=== PATIENT | female | born 1995 | race Caucasian/White ===

== ENCOUNTER 2024-11-04 15:58 | Emergency (ER) | payer MEDICAID ==
[~2024-11-04] VITALS: Ht 157.5 cm; Wt 67.1 kg
[2024-11-04 16:02] VITALS: BP 146/61; PULSE 102; RESP 18; TEMP 97.8; O2SAT 100
[2024-11-04] MEDS ORDERED: ACET325T64 PO (16:33)
[2024-11-04] MEDS ORDERED: IBUP-1984 PO (16:33)
[2024-11-04] MEDS ORDERED: TRAZ-251 PO (16:33)
== END 2024-11-04 17:22 | disposition home or self-care (01) ==
LOC: ER 15:58
DX: G89.29 Other chronic pain (principal); K08.89 Other specified disorders of teeth and supporting structures; G47.00 Insomnia, unspecified; Z88.0 Allergy status to penicillin; Z79.899 Other long term (current) drug therapy
CPT/HCPCS: 99281

== ENCOUNTER 2024-11-06 13:38 | Emergency (ER) | payer MEDICAID ==
[~2024-11-06] VITALS: Ht 157.5 cm; Wt 66.3 kg
[~2024-11-06 13:38] MED LIST: ACET325T64 PO; IBUP-1984 PO; TRAZ-251 PO
[2024-11-06 14:28] VITALS: BP 122/58; PULSE 94; RESP 16; TEMP 98.3; O2SAT 100
== END 2024-11-06 14:56 | disposition home or self-care (01) ==
LOC: ER 13:38
DX: Z00.00 Encounter for general adult medical examination without abnormal findings (principal); Z88.0 Allergy status to penicillin
CPT/HCPCS: 99281

== ENCOUNTER 2025-10-31 23:16 | Emergency (ER) | payer SELFPAY ==
[~2025-10-31] VITALS: Ht 157.5 cm; Wt 70.6 kg
[2025-10-31 23:16] VITALS: BP 135/79; PULSE 109; RESP 14; O2SAT 100
[~2025-10-31 23:16] MED LIST changes: -ACET325T64 PO; -IBUP-1984 PO
[2025-11-01 00:12] VITALS: TEMP 97.4
== END 2025-11-01 00:14 | disposition left against medical advice (07) ==
LOC: ER 23:16
DX: R22.0 Localized swelling, mass and lump, head (principal); Z88.0 Allergy status to penicillin; Z53.21 Procedure and treatment not carried out due to patient leaving prior to being seen by health care provider